=== PATIENT | male | born 1985 | race Caucasian/White ===

== ENCOUNTER 2024-12-17 11:41 | Emergency (ER) | payer OTHER ==
[2024-12-17 11:49] VITALS: BP 95/60; PULSE 70; RESP 18; TEMP 98.2; BMI 28.8
[2024-12-17] MEDS ORDERED: IBUPROFEN 600 MG TABLET (FP) PO ONE (12:09)
[2024-12-17] MEDS: IBUPROFEN 600 MG TABLET (FP) PO ONE (12:13)
== END 2024-12-17 13:09 | disposition home or self-care (01) ==
LOC: JERFT 11:41
DX: S63.602A Unspecified sprain of left thumb, initial encounter (principal); S63.502A Unspecified sprain of left wrist, initial encounter; X50.1XXA Overexertion from prolonged static or awkward postures, initial encounter; Y99.0 Civilian activity done for income or pay
CPT/HCPCS: 73110-TC-LT-FY; 73130-TC-LT-FY; 99283-25